=== PATIENT | male | born 1935 | race Caucasian/White ===

== ENCOUNTER 2021-09-22 11:38 | Emergency (ER) | payer MEDICARE ==
[2021-09-22] MEDS ORDERED: Sodium Chloride 0.9% 10 ML Syringe FLUSH PRN (12:40)
[2021-09-22] MEDS ORDERED: cefTRIAXone 500 MG Vial IVPUSH SCH (13:00)
[2021-09-22] MEDS ORDERED: VANCOmycin 1.5 GM/300 ML 1.5 GM in Premix Bag 1 BAG IV SCH (13:00)
[2021-09-22] MEDS ORDERED: Diphtheria/Tetanus Toxoids,Adult (Td) 0.5 ML SDV IM ONE (14:09)
--- NOTE | 2021-09-22 14:14 | EDM.PDOC ---
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 at home with all its vaccines he was in kitchen carving a frozen fish which slide off the table, as the fish fell he grabbed it with his right time at the same time as the dog when to grap it occurred 24h [employer], now red/swell today - Related Data Allergies Allergy/AdvReac Type Severity Reaction Status Date / Time No Known Allergies Allergy Verified 09/22/21 12:15 Home Meds: Home Meds Finasteride 5 mg PO DAILY 09/22/21 [History] Latanoprost/Pf [Latanoprost 0.005% Eye Drop] 1 drop EYEBOTH DAILY 09/22/21 [History] Lutein/Min/Vit C/Vit E Acetate [Ocuvite Lutein] 1 cap PO DAILY 09/22/21 [History] Tamsulosin [Flomax] 0.4 mg PO BID 09/22/21 [History] atorvaSTATin [Lipitor] 10 mg PO DAILY 09/22/21 [History] lisinopriL [Lisinopril] 20 mg PO DAILY 09/22/21 [History] Social & Family History - Tobacco Use Tobacco Use Status *Q: Never Tobacco User - Caffeine Use Caffeine Use: Reports: Coffee - Recreational Drug Use Recreational Drug Use: No ED ROS GENERAL - Review of Systems Review Of Systems: See Below Constitutional: Reports: No Symptoms HEENT: Reports: No Symptoms Respiratory: Reports: No Symptoms Cardiovascular: Reports: No Symptoms Endocrine: Reports: No Symptoms GI/Abdominal: Reports: No Symptoms : Reports: No Symptoms Musculoskeletal: Reports: No Symptoms Skin: Reports: Rash Neurological: Reports: No Symptoms Psychiatric: Reports: No Symptoms Hematologic/Lymphatic: Reports: No Symptoms Immunologic: Reports: No Symptoms ED EXAM, ANIMAL BITE - Physical Exam Exam: See Below Exam Limited By: No Limitations General Appearance: Alert, WD/WN, No Apparent Distress, Other (alert, pleasant, conversant) Respiratory/Chest: No Respiratory Distress Cardiovascular: Regular Rate, Rhythm Extremities: Normal Inspection, Normal Range of Motion, No Pedal Edema, Other (right hand with 25% swell and red over proximal 1/2 of middle and ring fingers, mild warm, red dorsum of hand 40% from MCP to wrist, mainly central altho also on volar aspect 25% from MCP to wrist, on dorsum there is one red line from dorsum of hand to wrist which pt was told to watch very carefully) Neurological: Alert, Oriented, CN II-XII Intact, Normal Cognition, No Motor/Sensory Deficits Psychiatric: Normal Affect, Normal Mood Lymphatic: No Adenopathy Course - Vital Signs Last Recorded V/S: Last Vital Signs Temp 37.1 C 09/22/21 11:40 Pulse 115 H 09/22/21 11:40 Resp 18 09/22/21 11:40 BP 120/97 H 09/22/21 11:40 Pulse Ox 96 09/22/21 11:40 - Orders/Labs/Meds Orders: Active Orders 24 hr Category Date Time Status VANCOmycin 1.5 GM/300 ML 1.5 gm Med 09/22/21 13:00 Active Premix Bag 1 bag IV Q24H cefTRIAXone [Rocephin] Med 09/22/21 13:00 Active 1,000 mg IVPUSH Q24H Medication Orders Ceftriaxone Sodium (Ceftriaxone 500 Mg Vial) 1,000 mg IVPUSH Q24H [facility] Stop: 09/26/21 13:00 Last Admin: 09/22/21 14:08 Dose: 1,000 mg Documented by: JESUS MANUEL Vancomycin HCl 1.5 gm/ Premix 300 mls @ 200 mls/hr IV Q24H [facility] Stop: 09/26/21 13:00 Last Admin: 09/22/21 13:03 Dose: 200 mls/hr Documented by: JESUS MANUEL Labs: Laboratory Tests 09/22/21 09/22/21 09/22/21 Range/Units 12:57 12:57 12:57 WBC 11.2 H (3.2-10.1) x10-3/uL RBC 5.09 (3.90-5.90) x10(6)uL Hgb 15.1 (12.9-17.7) g/dL Hct 46.4 (38.3-50.1) % MCV 91.2 (80.8-98.7) fL MCH 29.7 (27.0-33.3) pg MCHC 32.6 (28.7-35.3) g/dL RDW 14.2 (12.4-15.0) % Plt Count 158 (117-477) x10(3)uL MPV 7.3 (6.7-11.0) fL Neut % (Auto) 84.6 H (40.3-71.8) % Lymph % (Auto) 7.3 L (15.8-45.3) % Pershing % (Auto) 7.7 (5.5-15.2) % Eos % (Auto) 0.1 (0.1-6.8) % Baso % (Auto) 0.3 (0.3-3.8) % Neut # (Auto) 9.5 H (1.7-6.9) x10-3/uL Lymph # (Auto) 0.8 (0.5-4.5) x10-3/uL Pershing # (Auto) 0.9 (0.0-1.2) x10-3/uL Eos # (Auto) 0.0 (0.0-0.6) x10-3/uL Baso # (Auto) 0.0 (0.0-0.3) x10-3/uL Sodium 137 (135-145) mmol/L Potassium 3.8 (3.5-5.3) mmol/L Chloride 102 (100-110) mmol/L Carbon Dioxide 26 (21-32) mmol/L BUN 10 (7-18) mg/dL Creatinine 0.9 (0.70-1.30) mg/dL Est Cr Clr Drug Dosing 67.06 mL/min Estimated GFR (MDRD) > 60 (>60) BUN/Creatinine Ratio 11.1 (9-20) Glucose 137 H (80-116) mg/dL Calcium 9.0 (8.6-10.2) mg/dL Total Bilirubin 1.0 (0.1-1.3) mg/dL AST 11 (5-25) IU/L ALT 22 (12-36) U/L Alkaline Phosphatase 95 (56-112) IU/L C-Reactive Protein 0.9 (0.5-0.9) mg/dL Total Protein 7.3 (6.0-8.0) g/dL Albumin 4.2 (3.2-4.6) g/dL Globulin 3.1 g/dL Albumin/Globulin Ratio 1.4 Meds: Medications Generic Name Dose Route Start Last Admin Trade Name Belinda PRN Reason Stop Dose Admin Ceftriaxone Sodium 1,000 mg 09/22/21 13:00 09/22/21 14:08 Ceftriaxone 500 Mg Vial IVPUSH 09/26/21 13:00 1,000 mg Q24H CATIE Administration Vancomycin HCl 1.5 gm/ Premix 300 mls @ 200 mls/hr 09/22/21 13:00 09/22/21 13:03 IV 09/26/21 13:00 200 mls/hr Q24H [facility] Administration Departure - Departure Time of Disposition: 14:09 Disposition: Home, Self-Care 01 Condition: Good Clinical Impression: Cellulitis of right hand, Dog bite of right hand - Discharge Information *PRESCRIPTION DRUG MONITORING PROGRAM REVIEWED*: Not Applicable *COPY OF PRESCRIPTION DRUG MONITORING REPORT IN PATIENT TYRONE: Not Applicable Instructions: Cellulitis, Adult, Animal Bite, Adult Referrals: PCP,None [Primary Care Provider] - Additional Instructions: Limit use of right hand. Come daily between noon and 1 pm to the Emergency Department for daily IV doses of 2 antibiotics (ceftriaxone and vancomycin). It is very important that the redness receded and go away. If it does not, certainly if it is increasing in size, you need to come back to the ED even if it is 12 hours after you have left. You will most likely need another 5 days of oral antibiotics, although that will need to be determined by the physician on duty in 5 days. For discomfort, take acetaminophen 500 mg 2 tabs 4 times a day for 2 days. May use ice for 10 minutes several times a day as needed. Sepsis Event Note (ED) - Evaluation Sepsis Screening Result: No Definite Risk - Focused Exam Vital Signs: Vital Signs Temp Pulse Resp BP Pulse Ox 09/22/21 11:40 37.1 C 115 H 18 120/97 H 96 - My Orders Last 24 Hours: My Active Orders 09/22/21 13:00 VANCOmycin 1.5 GM/300 ML 1.5 gm Premix Bag 1 bag IV Q24H cefTRIAXone [Rocephin] 1,000 mg IVPUSH Q24H - Assessment/Plan Last 24 Hours: My Active Orders 09/22/21 13:00 VANCOmycin 1.5 GM/300 ML 1.5 gm Premix Bag 1 bag IV Q24H cefTRIAXone [Rocephin] 1,000 mg IVPUSH Q24H
[2021-09-22] MEDS ORDERED: Diphtheria,Pertussis(Acell),Tetanus Vaccine 0.5 ML Syringe IM ONE (14:27)
== END 2021-09-22 14:52 | disposition home or self-care (01) ==
LOC: FB.ED 11:38
DX: S61.451A Open bite of right hand, initial encounter (principal); L03.113 Cellulitis of right upper limb; Z23 Encounter for immunization; W54.0XXA Bitten by dog, initial encounter; Y92.009 Unspecified place in unspecified non-institutional (private) residence as the place of occurrence of the external cause
CPT/HCPCS: 36415; 80053; 85025; 86140; 90471; 90715; 96365; 99283; J0696; J3370

== ENCOUNTER 2021-12-25 07:46 | Day surgery (SDC) | payer MEDICARE ==
[2021-12-25] MEDS ORDERED: fentaNYL 100 MCG/2 ML SDV IV ONE (07:47)
[2021-12-25] MEDS ORDERED: Midazolam 1 MG/ML 2 ML SDV IV ONE (07:47)
[2021-12-25] MEDS: Sodium Chloride 0.9% 10 ML Syringe FLUSH PRN (08:20)
[2021-12-25] MEDS: Lactated Ringers 1,000 ML IV PRN (08:33)
[2021-12-25] MEDS: acetaZOLAMIDE 500 MG Cap.ER PO ONE (10:26)
== END 2021-12-25 10:25 | disposition home or self-care (01) ==
LOC: FB.SDS 07:46
PROVIDERS: ATTEND Ophthalmology
DX: H25.813 Combined forms of age-related cataract, bilateral (principal); H40.143 Capsular glaucoma with pseudoexfoliation of lens, bilateral; H35.3221 Exudative age-related macular degeneration, left eye, with active choroidal neovascularization; H35.3112 Nonexudative age-related macular degeneration, right eye, intermediate dry stage; H21.81 Floppy iris syndrome; R73.01 Impaired fasting glucose; E78.5 Hyperlipidemia, unspecified; N40.1 Benign prostatic hyperplasia with lower urinary tract symptoms; N13.8 Other obstructive and reflux uropathy; I10 Essential (primary) hypertension; Z79.899 Other long term (current) drug therapy
CPT/HCPCS: 00142-QZ; A9270-GY; J2250; J3010; J7120; V2632

== ENCOUNTER 2022-02-05 10:48 | Day surgery (SDC) | payer MEDICARE ==
[2022-02-05] MEDS ORDERED: Midazolam 1 MG/ML 2 ML SDV IV ONE (10:49)
[2022-02-05] MEDS ORDERED: Sodium Chloride 0.9% 10 ML Syringe FLUSH PRN (11:00)
[2022-02-05] MEDS ORDERED: Lactated Ringers 1,000 ML IV PRN (11:00)
[2022-02-05] MEDS ORDERED: Tetracaine HCl/PF 0.5% 4 ML Bottle ONE (12:05)
[2022-02-05] MEDS ORDERED: Dexamethasone/Tobramycin 0.1-0.3% Ophth Susp 2.5 ML Bottle ONE (12:24)
[2022-02-05] MEDS ORDERED: Brimonidine 0.2% Ophth Soln 5 ML Bottle ONE (12:24)
[2022-02-05] MEDS ORDERED: acetaZOLAMIDE 500 MG Cap.ER PO ONE (13:30)
== END 2022-02-05 13:12 | disposition home or self-care (01) ==
LOC: FB.SDS 10:48
PROVIDERS: ATTEND Ophthalmology
DX: H25.813 Combined forms of age-related cataract, bilateral (principal); H21.81 Floppy iris syndrome; H40.143 Capsular glaucoma with pseudoexfoliation of lens, bilateral; H35.3221 Exudative age-related macular degeneration, left eye, with active choroidal neovascularization; H35.3112 Nonexudative age-related macular degeneration, right eye, intermediate dry stage; H26.8 Other specified cataract; I10 Essential (primary) hypertension; N40.1 Benign prostatic hyperplasia with lower urinary tract symptoms; N13.8 Other obstructive and reflux uropathy; D64.9 Anemia, unspecified; E78.00 Pure hypercholesterolemia, unspecified; Z87.891 Personal history of nicotine dependence; Z79.899 Other long term (current) drug therapy
CPT/HCPCS: 00142-QZ; A9270-GY; J2250; V2632

== ENCOUNTER 2023-11-25 14:00 | Emergency (ER) | payer MEDICARE | END 2023-11-25 14:30 | disposition home or self-care (01) | LOC: FB.ED 14:00 | DX: L03.113 Cellulitis of right upper limb (principal); I10 Essential (primary) hypertension; E78.00 Pure hypercholesterolemia, unspecified; W54.0XXA Bitten by dog, initial encounter; Z79.899 Other long term (current) drug therapy | CPT/HCPCS: 99283 ==